=== PATIENT | female | born 1985 | race Caucasian/White ===

== ENCOUNTER 2018-01-07 04:16 | Emergency (ER) | payer OTHER ==
[~2018-01-07] VITALS: Ht 162.6 cm; Wt 43.2 kg
[~2018-01-07 04:16] MED LIST: IBUP-1050 PO
[2018-01-07 04:18] VITALS: TEMP 36.5; Ht 162.6 cm; Wt 43.2 kg
[2018-01-07] MEDS ORDERED: GI COCKTAIL PO STA (04:29)
[2018-01-07] MEDS ORDERED: ALUMINUM/MAGNESIUM SUSP 30 ML UDC ONE (04:37)
[2018-01-07] MEDS ORDERED: LIDOCAINE HCL 2% VISC SOLN 20 ML UDC ONE (04:37)
--- NOTE | 2018-01-07 04:38 | EMERGENCY ROOM VISIT NOTE ---
History Report prepared by Issa: Russ Hayward Under the Supervision of: Dr. Mati Posada M.D. First contact with patient: 04:22 Chief Complaint: CHEST PAIN Stated Complaint: CHEST PAIN,SHOOTING PAIN UP BACK,COLD SWEATS History of Present Illness The patient is a 32 year old female who presents to the Emergency Room with complaints of constant center chest pain beginning tonight. The patient states that she woke up tonight with bad chest pain that radiated through to her back and to her neck. She notes that her pain feels "tight" in her chest. She reports that she had her thyroid taken out 4 months ago. The patient states that her synthetic hormones have been increased within the last three weeks. She notes that she took ibuprofen today for a headache. She denies any urinary symptoms and diarrhea. She also denies any history of blood clots and heartburn as well as any recent travel. She reports that she has no family history of blood clots. She reports that she has a history of pancreas issues. She rates her pain as a 3/10, but states that her pain shoots through every now and then. Source of History: patient Onset: tonight Position: chest Symptom Intensity: 3/10 Quality: other ("tight") Timing: constant Associated Symptoms: + headache, + neck pain, + back pain, No diarrhea, No urinary symptoms Review of Systems See HPI for pertinent positives & negatives. A total of 10 systems reviewed and were otherwise negative. Past Medical & Surgical Medical Problems: (1) C. difficile colitis (2) Pancreatitis (3) Vascular malformation Surgical Problems: (1) H/O section (2) History of cholecystectomy (3) Previous section Family History Diabetes mellitus Hypertension Social History Smoking Status: Never Smoker Alcohol Use: none Drug Use: none Marital Status: Housing Status: lives with family Occupation Status: unemployed Current/Historical Medications Scheduled Duloxetine HCl (Cymbalta), 1 CAP PO DAILY Levothyroxine Sodium (Levothyroxine Sodium), 1 TAB PO DAILY Scheduled PRN Ibuprofen (Advil), 200-600 MG PO Q4H PRN for Pain Allergies Coded Allergies: Cat Dander (Verified Allergy, Unknown, ITCHY EYES RUNNY NOSE, 01/07/18) Molds & Smuts (Verified Allergy, Unknown, ITCHY EYES, RUNNY NOSE, 01/07/18) NO KNOWN DRUG ALLERGIES (Verified Allergy, Unknown, NONE, 01/07/18) Fentanyl (Unverified Adverse Reaction, Unknown, HIVES- CAN TAKE IF GIVEN WITH BENADRYL, 01/07/18) Morphine (Unverified Adverse Reaction, Unknown, HIVES- CAN TAKE IF GIVEN BENADRYL, 01/07/18) Physical Exam Vital Signs Date Time Temp Pulse Resp B/P (MAP) Pulse Ox O2 Delivery O2 Flow Rate FiO2 01/07/18 07:07 82 16 128/80 98 01/07/18 05:38 89 18 125/83 98 Room Air 01/07/18 04:42 88 01/07/18 04:42 Room Air 01/07/18 04:18 36.5 87 18 130/88 98 Room Air Physical Exam GENERAL: Patient is very anxious appearing and in mild distress., tearful. HEENT: No acute trauma, normocephalic atraumatic, mucous membranes moist, no nasal congestion, no scleral icterus. NECK: No stridor, no adenopathy, no meningismus, trachea is midline. LUNGS: No dyspnea. Clear to auscultation and equal bilaterally. No wheeze, no rhonchi. HEART: Regular rate and rhythm. No murmurs, rubs, gallops appreciated. ABDOMEN: Soft, nontender, bowel sounds positive, no masses appreciated, no peritonitis. BACK: No midline tenderness, no CVA tenderness EXTREMITIES: Normal motion all extremities, no cyanosis, no edema. NEUROLOGIC: Alert and oriented, no acute motor or sensory deficits, no focal weakness, cranial nerves grossly intact. SKIN: No rash, no jaundice, no diaphoresis. Medical Decision & Procedures ER Provider Diagnostic Interpretation: X ray results are stated below per my interpretation: Chest: 1 view: No infiltrate, no effusion, normal cardiac border. Laboratory Results 01/07/18 04:30 Red Blood Count 4.17, Mean Corpuscular Volume 86.1, Mean Corpuscular Hemoglobin 28.5, Mean Corpuscular Hemoglobin Concent 33.1, Mean Platelet Volume 9.0, Neutrophils (%) (Auto) 46.7, Lymphocytes (%) (Auto) 43.5, Monocytes (%) (Auto) 7.6, Eosinophils (%) (Auto) 1.3, Basophils (%) (Auto) 0.9, Neutrophils # (Auto) 2.57, Lymphocytes # (Auto) 2.39, Monocytes # (Auto) 0.42, Eosinophils # (Auto) 0.07, Basophils # (Auto) 0.05 01/07/18 04:30 Test 01/07/18 04:30 01/07/18 06:26 White Blood Count 5.50 K/uL (4.8-10.8) Red Blood Count 4.17 M/uL (4.2-5.4) Hemoglobin 11.9 g/dL (12.0-16.0) Hematocrit 35.9 % (37-47) Mean Corpuscular Volume 86.1 fL (80-100) Mean Corpuscular Hemoglobin 28.5 pg (25-34) Mean Corpuscular Hemoglobin Concent 33.1 g/dl (32-36) Platelet Count 371 K/uL (130-400) Mean Platelet Volume 9.0 fL (7.4-10.4) Neutrophils (%) (Auto) 46.7 % Lymphocytes (%) (Auto) 43.5 % Monocytes (%) (Auto) 7.6 % Eosinophils (%) (Auto) 1.3 % Basophils (%) (Auto) 0.9 % Neutrophils # (Auto) 2.57 K/uL (1.4-6.5) Lymphocytes # (Auto) 2.39 K/uL (1.2-3.4) Monocytes # (Auto) 0.42 K/uL (0.11-0.59) Eosinophils # (Auto) 0.07 K/uL (0-0.5) Basophils # (Auto) 0.05 K/uL (0-0.2) RDW Standard Deviation 46.1 fL (36.4-46.3) RDW Coefficient of Variation 14.8 % (11.5-14.5) Immature Granulocyte % (Auto) 0.0 % Immature Granulocyte # (Auto) 0.00 K/uL (0.00-0.02) D-Dimer 410 ug/L FEU (0-500) Anion Gap 6.0 mmol/L (3-11) Est Creatinine Clear Calc Drug Dose 67.0 ml/min Estimated GFR () 108.9 Estimated GFR (Non- 94.0 BUN/Creatinine Ratio 16.0 (10-20) Calcium Level 9.8 mg/dl (8.5-10.1) Total Bilirubin 0.4 mg/dl (0.2-1) Aspartate Amino Transf (AST/SGOT) 13 U/L (15-37) Alanine Aminotransferase (ALT/SGPT) 20 U/L (12-78) Alkaline Phosphatase 44 U/L (45-117) Troponin I < 0.015 ng/ml (0-0.045) Total Protein 8.1 gm/dl (6.4-8.2) Albumin 4.5 gm/dl (3.4-5.0) Globulin 3.6 gm/dl (2.5-4.0) Albumin/Globulin Ratio 1.3 (0.9-2) Lipase 161 U/L (73-393) Bedside Troponin I < 0.030 ng/ml (0-0.045) Laboratory results as reviewed by me. Medications Administered Medications (Trade) Dose Ordered Sig/Bart Route Start Time Stop Time Status Last Admin Dose Admin Al Hydroxide/Mg Hydroxide (Maalox Susp) 30 ml STK-MED ONCE .ROUTE 01/07/18 04:37 01/07/18 04:38 DC 01/07/18 04:45 30 ML Lidocaine HCl (Viscous Lidocaine 2% Soln) 20 ml STK-MED ONCE .ROUTE 01/07/18 04:37 01/07/18 04:38 DC 01/07/18 04:44 20 ML Diphenhydramine HCl (Benadryl Inj) 25 mg NOW STAT IV 01/07/18 05:30 01/07/18 05:31 DC 01/07/18 05:38 25 MG Hydromorphone HCl (Dilaudid Inj) 0.5 mg NOW STAT IV 01/07/18 05:30 01/07/18 05:31 DC 01/07/18 05:37 0.5 MG ECG Indication: chest pain Rate (beats per minute): 84 Rhythm: normal sinus Findings: no acute ischemic change, no ectopy, other (Nonspecific lateral ST depression) Comparison ECG Date: no prior available Change: EKG: Electrocardiogram per my interpretation. REPEAT EKG: Normal sinus at 85. No ectopy. No ischemia. Improved baseline from previous. ST abnormalities are no longer apparent. ED Course 0424: The patient was evaluated in room B4. A complete history and physical exam was performed. 0530: I reevaluated and updated the patient. She says that her pain has not gone away, and is now requesting Dilaudid. 0655: I rechecked the patient. She notes residual mile soreness. She is comfortable going home and will follow up with her PCP. She will return here in 12-24 hours if her symptoms do not improve. She will return back to the emergency department earlier if her symptoms worsen. 0700: Reevaluated the patient. Discussed results and discharge instructions. She verbalized understanding and agreement. The patient is ready for discharge. Medical Decision Differential: Gastritis/PUD, Pancreatitis, ACS, Aortic Pathology, Cholecystitis , Gallbladder disfunction, Hepatic Disfunction, PE, amongst other pathologies entertained. 32 yr old female with substernal chest pressure radiating to back and neck. Minimal improvement with GI cocktail thus some Dilaudid/Benadryl with improvement. EKG initially with questionable lateral STs though I suspect this is all poor baseline, especially given that repeat EKG was completely normal. Labs unremarkable. Dimer negative and without risk factors I do not feel this is PE. I have done 2 Trops which were both negative several hours apart. She has no evidence of ACS, Dissection, PE. Abdominal exam benign not consistent with GB issues and with normal LFTs/Lipase I do not feel that imaging abdomen required. Symptoms not consistent with Thyroid issues. HR normal throughout ED stay. Vitals looking better. Stable and non-toxic. Unclear exact cause though may all be MSK. Discussed monitoring at home and if worsening or no improvement RTED for further evaluation. Medication Reconcilliation Current Medication List: was personally reviewed by me Blood Pressure Screening Patient's blood pressure: Normal blood pressure Blood pressure disposition: Did not require urgent referral Impression Primary Impression: Substernal precordial chest pain Scribe Attestation The scribe's documentation has been prepared under my direction and personally reviewed by me in its entirety. I confirm that the note above accurately reflects all work, treatment, procedures, and medical decision making performed by me. Departure Information Dispostion Home / Self-Care Referrals Gaye Echevarria D.O. (PCP) Forms Call Back Authorization, HOME CARE DOCUMENTATION FORM, IMPORTANT VISIT INFORMATION Patient Instructions ED Chest Pain Atypical Unkn Cause, My [facility] Additional Instructions Please follow up with your primary care provider. Return in 12 -24 hours if no improvement or other concerns. Return immediately if significant worsening, passing out, difficulty breathing or other acute concerns.
[2018-01-07 04:45] LABS: BASO % 0.9 %; BASO ABS # 0.05 K/uL (0-0.2); EOS % 1.3 %; EOS ABS # 0.07 K/uL (0-0.5); HEMATOCRIT 35.9 % (37-47); HEMOGLOBIN 11.9 g/dL (12.0-16.0); LYMPH % 43.5 %; LYMPH ABS # 2.39 K/uL (1.2-3.4); MEAN CELL VOLUME 86.1 fL (80-100); MEAN CORPUSCULAR HEMOGLOBIN 28.5 pg (25-34); MEAN CORPUSCULAR HGB CONC 33.1 g/dl (32-36); MONO % 7.6 %; MONO ABS # 0.42 K/uL (0.11-0.59); NEUT % 46.7 %; NEUT ABS # 2.57 K/uL (1.4-6.5); PLATELET COUNT 371 K/uL (130-400); RED CELL DISTRIBUTION WIDTH CV 14.8 % (11.5-14.5); RED CELL DISTRIBUTION WIDTH SD 46.1 fL (36.4-46.3)
[2018-01-07 05:03] LABS: ALBUMIN 4.5 gm/dl (3.4-5.0); ALT/SGPT 20 U/L (12-78); AST/SGOT 13 U/L (15-37); BLOOD UREA NITROGEN 13 mg/dl (7-18); CALCIUM 9.8 mg/dl (8.5-10.1); CARBON DIOXIDE 28 mmol/L (21-32); CREATININE 0.83 mg/dl (0.60-1.20); GLUCOSE 94 mg/dl (70-99); LIPASE 161 U/L (73-393); POTASSIUM 3.7 mmol/L (3.5-5.1); SODIUM 140 mmol/L (136-145)
[2018-01-07 05:08] LABS: ALKALINE PHOSPHATASE 44 U/L (45-117); TOTAL PROTEIN 8.1 gm/dl (6.4-8.2)
[2018-01-07] MEDS ORDERED: CYM/30 PO (05:21)
[2018-01-07] MEDS ORDERED: LEVO100T7 PO (05:21)
[2018-01-07] MEDS ORDERED: DiphenhydrAMINE HCL 50 MG/ML VIAL IV STA (05:30)
[2018-01-07] MEDS ORDERED: HYDROmorphone INJ 0.5 MG/0.5 ML SYR IV STA (05:30)
--- NOTE | 2018-01-07 06:39 | DIAGNOSTIC IMAGING REPORT ---
CHEST ONE VIEW PORTABLE CLINICAL HISTORY: Chest pain. COMPARISON STUDY: Chest radiograph October 27, 2014. FINDINGS: Lung volumes are normal. No pneumothorax or pleural effusion is noted. Cardiac size is normal. Mediastinal contours are normal. There is no evidence for pulmonary edema. Lungs are clear. IMPRESSION: No acute cardiopulmonary findings. Electronically signed by: Aroldo Priest M.D. 01/07/2018 6:37 AM Dictated Date/Time: 01/07/2018 6:37 AM
[2018-01-07] MEDS ORDERED: OXYCODONE IR HOME PACK PO ONE (07:00)
[2018-01-07 07:07] VITALS: BP 128/80; PULSE 82; O2SAT 98
== END 2018-01-07 07:09 | disposition home or self-care (01) ==
LOC: C.EDB 04:17
DX: R07.2 Precordial pain (principal); R51 Headache; M54.2 Cervicalgia; Z79.899 Other long term (current) drug therapy

== ENCOUNTER 2024-09-14 10:35 | Observation (INO) ==
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
[2024-09-14 12:11] LABS: Basophils # (auto) 0.05 K/uL (0.00-0.20); Basophils % (auto) 0.7 %; Eosinophils # (auto) 0.04 K/uL (0.00-0.50); Eosinophils % (auto) 0.6 %; Hematocrit (blood only) 39.2 % (37.0-47.0); Hemoglobin 13.2 g/dl (12.0-16.0); Immature Granulocytes # (auto) 0.02 K/uL (0.01-0.20); Immature Granulocytes % (auto) 0.3 %; Lymphocytes # (auto) 2.01 K/uL (1.20-3.40); Lymphocytes % (auto) 28.1 %; Mean Corpuscular Hemoglobin 29.3 pg (25.0-34.0); Mean Corpuscular Hgb Conc 33.7 g/dL (32.0-36.0); Mean Corpuscular Volume 86.9 fL (80.0-100.0); Mean Platelet Volume 9.2 fL (9.4-12.4); Monocytes % (auto) 8.4 %; Neutrophils # (auto) 4.44 K/uL (1.40-6.50); Neutrophils % (auto) 61.9 %; Platelet Count 343 K/uL (130-400); RDW Coefficient of Variation 12.1 % (11.5-14.5); RDW Standard Deviation 38.8 fL (36.4-46.3); Red Blood Count 4.51 M/uL (4.20-5.40); White Blood Count 7.16 K/ul (4.8-10.8)
[2024-09-14 12:24] LABS: BUN Creatinine Ratio 9.1 (10-20); Calcium 9.7 mg/dl (8.6-10.3); Potassium 3.8 mmol/L (3.5-5.1)
[2024-09-14 12:28] LABS: Troponin I High Sensitivity 2.9 pg/ml (0-14)
[2024-09-14] MEDS: OPTIRAY 320 125ml IV ONE ×2 (12:40→16:15)
[2024-09-14 12:47] LABS: Appearance Urine Clear (Clear); Bilirubin Urine Negative (Negative); Blood Urine Negative (Negative); Color Urine Yellow; Glucose Urine UA Negative (Negative); Ketones Urine Trace (Negative); Leukocyte Esterase Urine Negative (Negative); Nitrite Urine Negative (Negative); Protein Urine Negative (Negative); Specific Gravity Urine 1.005 (1.000-1.030); Urobilinogen Urine Negative (Negative)
--- NOTE | 2024-09-14 13:09 | CT Scan Report ---
CT head venogram w con HISTORY: 38 years-old Female Positional headache, thrombosis acute headache COMPARISON: None TECHNIQUE: CT venogram was obtained with IV contrast. A dose lowering technique was used consistent w ith the principals bobo UP. FINDINGS: Normal cerebral venous sinuses without evidence of thrombus. No abnormal enhancement. IMPRESSION: Normal exam ACT 112: Negative or not required by law. The above report was generated using voice recognition software. It may contain grammatical, syntax o r spelling errors. Electronically signed by: Des Gibbons M.D. 09/14/2024 1:07 PM
[2024-09-14] MEDS: PROCHLORPERAZINE 5 MG/ML 2 ML VIAL IV STA (13:22)
[2024-09-14] MEDS: diphenhydrAMINE 50 MG/ML VIAL IV STA ×2 (13:22→14:51)
[2024-09-14] MEDS: KETOROLAC TROMETHAMINE 15 MG/ML VIAL IV ONE (13:22)
[2024-09-14] MEDS: MAGNESIUM SULFATE / D5W 1 GM/100 ML BAG IV ONE (13:23)
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
[2024-09-14 16:33] LABS: Thyroid Stimulating Hormone 0.239 uIu/ml (0.300-4.500)
--- NOTE | 2024-09-14 16:43 | CT Scan Report ---
CT angio head wo/w CLINICAL HISTORY: Intractable headache. COMPARISON STUDY: CT venogram performed earlier today. TECHNIQUE: Unenhanced and arterial phase imaging of the head was performed. Intravenous injection 119 cc of Optiray 320 IV was uneventful. Sagittal and coronal reconstructions were viewed as well as max imal intensity projections on an independent workstation. Automated exposure control was utilized for the study. A dose lowering technique was utilized adhering to the principles of ALARA. FINDINGS: No acute intracranial hemorrhage, midline shift or mass effect is present. Residual intrava scular contrast from recent contrast-enhanced CT is noted. The ventricular system is normal. The basa l cisterns are patent. There are no extra-axial collections. [place]-white differentiation is maintained . There are no findings to suggest acute dural sinus thrombosis or acute territorial infarct. The yaritza ateral M1, M2, A1 and A2 segments are patent. There is no intracranial aneurysm. The posterior circul ation is intact. Major dural sinuses are patent. IMPRESSION: 1. No acute intracranial findings. 2. Unremarkable CTA of the head. ACT 112: Negative or not required by law. Electronically signed by: Aroldo Priest M.D. 09/14/2024 4:41 PM
[2024-09-14] MEDS: LORazepam 0.5 MG TAB PO ONE (16:55)
[2024-09-14 17:08] LABS: T4 Free Thyroxine 1.42 ng/dl (0.61-1.60)
--- NOTE | 2024-09-14 17:08 | CT Scan Report ---
CT ANGIOGRAM OF THE NECK COMBO CLINICAL HISTORY: Headache. COMPARISON STUDY: No priors. TECHNIQUE: Before and following the IV administration of 119 of Optiray 320, CT angiogram of the neck was performed from the aortic arch to the skull base. Images are reviewed in the axial, sagittal, an d coronal planes. 3-D MIPS images are created and assessed. IV contrast was administered without comp lication. All measurements were calculated based on NASCET criteria. A dose lowering technique was u tilized adhering to the principles of ALARA. FINDINGS: Thoracic aorta: Visualized portions of the thoracic aorta are normal in caliber. The aortic arch demo nstrates standard 3-vessel anatomy. Right carotid arterial system: The right common carotid artery is widely patent, as are the right int ernal and external carotid arteries. Left carotid arterial system: The left common carotid artery is widely patent, as are the left development intern al and external carotid arteries. Vertebral arteries: Widely patent bilaterally and codominant. Subclavian arteries: Widely patent bilaterally. Intracranial vasculature: The visualized intracranial vessels at the skull base are patent. Jugular veins: Patent bilaterally. Brain parenchyma: The visualized brain parenchyma the skull base is within normal limits. Lung apices: Partially visualized upper lobe lung parenchyma appears clear. Soft tissues: The visualized pharyngeal soft tissues are normal in appearance noting angiographic pha se technique. The oropharyngeal airway appears widely patent. The thyroid gland is surgically absent. The salivary glands are normal in appearance. There is a 0.8 x 0.7 cm left cervical chain node on un enhanced image #169 which contains a coarse calcification. No additional calcification containing cer vical nodes are identified. Skeletal structures: The visualized calvarium at the skull base appears intact. The imaged cervical s pine is within normal limits. Sinuses and mastoids: The paranasal sinuses are clear. The mastoid air cells are well pneumatized. IMPRESSION: 1. Unremarkable CT angiogram of the neck. 2. There is an 8 mm left cervical chain node which contains a calcification. This is not highly suspi cious, but given the history of thyroidectomy a targeted ultrasound of this lymph node is recommended . ACT 112: Positive. There are findings on this exam that require communication between the performing entity and the patient following Patient Test Result Information Act ([place] Act 112) guidelines. Electronically signed by: Nic Lr M.D. 09/14/2024 5:07 PM
[2024-09-14] MEDS: GADOBUTROL 65ML VIAL IV ONE (17:39)
[2024-09-14] MEDS ORDERED: ALUMINUM/MAGNESIUM SUSP 30 ML UDC PO PRN (18:30)
[2024-09-14] MEDS ORDERED: POLYETHYLENE (MIRALAX) 17 GM PACK PO PRN (18:30)
[2024-09-14] MEDS ORDERED: ACETAMINOPHEN 325 MG TAB PO PRN (18:30)
[2024-09-14] MEDS ORDERED: ONDANSETRON INJ 2 MG/ML 2 ML VIAL IV PRN (18:30)
[2024-09-14] MEDS ORDERED: MAGNESIUM HYDROXIDE SUSP 30 ML UDC PO PRN (18:30)
--- NOTE | 2024-09-14 19:16 | Magnetic Resonance Report ---
MRI OF THE BRAIN COMBO CLINICAL HISTORY: Migraine headache. COMPARISON STUDY: CT of the brain performed the same date 08/25/2024. TECHNIQUE: MRI of the brain was performed utilizing various T1 and T2-weighted sequences in the axial , sagittal, and coronal planes. Contrast-enhanced sequences were acquired following the administratio n of 5 cc of Gadavist. FINDINGS: Brain parenchyma: The brain parenchyma is normal in appearance. There is no hemorrhage or mass effect . There is no restricted diffusion to suggest acute ischemia. No enhancing mass lesion is identified on the postcontrast images. [place]-white matter differentiation is preserved. No extra-axial fluid raghavendra ection is seen. The cerebellar tonsils are normal in configuration. Ventricles, sulci, and cisterns: Normal in configuration. Pituitary and sella: Unremarkable. Intracranial vasculature: Normal flow voids are maintained at the skull base. Orbits: The bony orbits are grossly intact. Orbital contents are normal in appearance. Sinuses and mastoids: Clear. Calvarium: Unremarkable. Cervical cord: Partially visualized cervical spinal cord is normal in morphology and signal intensity . IMPRESSION: No acute intracranial abnormality. ACT 112: Negative or not required by law. Electronically signed by: Nic Lr M.D. 09/14/2024 7:14 PM
[2024-09-15] MEDS: LEVOTHYROXINE SODIUM 112 MCG TABLET PO SCH (06:37)
[2024-09-15 07:09] LABS: Hematocrit (blood only) 36.7 % (37.0-47.0); Hemoglobin 12.6 g/dl (12.0-16.0); Mean Corpuscular Hemoglobin 29.6 pg (25.0-34.0); Mean Corpuscular Hgb Conc 34.3 g/dL (32.0-36.0); Mean Corpuscular Volume 86.4 fL (80.0-100.0); Mean Platelet Volume 9.1 fL (9.4-12.4); Platelet Count 337 K/uL (130-400); RDW Standard Deviation 38.2 fL (36.4-46.3); Red Blood Count 4.25 M/uL (4.20-5.40); White Blood Count 6.82 K/ul (4.8-10.8)
[2024-09-15 07:21] LABS: BUN Creatinine Ratio 9.3 (10-20); Creatinine Clr Calc Pharmacy 84.5 ml/min; Magnesium 2.3 mg/dl (1.7-2.4); Potassium 3.6 mmol/L (3.5-5.1)
[2024-09-15 07:48] VITALS: RESP 18
--- NOTE | 2024-09-15 10:01 | Ultrasound Report ---
US soft tissue head and neck CLINICAL HISTORY: f/u ultrasound, calcified lymph node COMPARISON STUDY: CTA of the neck September 14, 2024. TECHNIQUE: Sonography of the left neck was performed. FINDINGS: Multiple benign-appearing left cervical lymph nodes were noted. Index node measures 0.9 x 0 .6 x 0.3 cm. One-to-one correlation with the neck CT of September 14, 2024 is difficult however the lym ph node on CT is likely benign. No enlarged left cervical lymph nodes were identified. IMPRESSION: 1. No enlarged left-sided cervical lymph nodes. 2. The left level [address] of September 14, 2024 is likely benign. This could be assessed wit h a follow-up neck CT in 6 months to ensure stability. ACT 112: Negative or not required by law. Electronically signed by: Aroldo Priest M.D. 09/15/2024 9:59 AM
[2024-09-15] MEDS: BUTALBITAL/ACETAMIN/CAFFEINE TAB PO PRN (10:05)
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
[2024-09-15] MEDS: SODIUM CHLORIDE 0.9% 1,000 ML IV SCH (12:10)
[2024-09-15 15:55] VITALS: PULSE 98; TEMP 98.4; O2SAT 97
--- NOTE | 2024-09-15 15:59 | Discharge Summary ---
Discharge Summary Date of Service September 15, 2024 Principal Dx & Hospital Course #1 = Principal Diagnosis (1) Intractable headache: (2) History of thyroid cancer: (3) Anxiety: Plan Ms. Neff is a 38 year old female that presents to the ED today with an intractable headache that has been progressively worsening over the past 3-4 days. She recently had been experiencing N/V/D that has been occurring since . No other sick contacts in the house and no recent travel. She describes the headache as positional and becomes worse with sitting and standing. She denies visual or auditory changes, including blurry or double v ision, AMS, chest pain, SOB, palpitations, N/V/D, recent falls or trauma. Nazanin has a PMH that includes thyroid cancer s/p thyroidectomy in 2017, and anxiety/depression. A migraine cocktail was administered in the ED. ED discussed with systems integration advisor Neuro who recommended a brain MRI, head/neck CTA and neurology consultation. Intractable CHAMPION: intractable frontal and occipital headache without aura that has been progressively worsening over the past 3-4 days No leukocytosis Venogram CT negative Head CTA unremarkable Neck CTA with noted 8mm L Cervical chain node with calcification. A targeted ultrasound of the lymph node was further recommended Brain MRI was unremarkable Head and neck ultrasound noting a benign lymph node. Repeat neck CT imaging in 6 months was recommended to ensure stability. Migraine cocktail given in ED, 1G Mg+ given in ED: trend in AM Patient was started on Fioricet by admitting team. She stated that she did find some relief with that. Orthostatic vitals were obtained, and pt received IV Fluids with noted improvement Discharged with a few more pills of Fioricet with close PCP follow-up Neurology consulted, recommended/stated the following: -Recommend continued headache treatment -Continue IVF if tolerated Patient was advised to continue to push oral fluids after discharge and keep close neurology follow-up as well Patient was discharged in stable condition History of thyroid cancer: s/p thyroidectomy 2017 TSH elevated and reflex T4 normal Takes Synthroid; continue PCP followup H/O AVM: Chronic Diagnosed in 2016 Notes For Next Care Provider please ensure resolution of headache Please ensure close neurology follow-up Medication Changes From Visit Fioricet, 10 pills Admission HPI Per Admitting Provider Ms. Neff is a 38 year old female that presents to the ED today with an intractable headache that has been progressively worsening over the past 3-4 days. She recently had been experiencing N/V/D that has been occuring since . No other sick contacts in the house and no recent travel. She describes the headache as positional and becomes worse with sitting and standing. She denies visual or auditory changes, including blurry or double vision, AMS, chest pain, SOB, palpitations, N/V/D, recent falls or trauma. Nazanin has a PMH that includes thyroid cancer s/p thyroidectomy in 2017, and anxiety/depression. Pt denies tobacco use, alcohol use or recreational drug use including medical marijuana. She said that her LMP was on 09/03 and more heavy than usual. She has had about 8# weight gain unintentionally over the past few months. She eats a normal diet with avoiding fast food usually. No unusual stressor outside of being a parent to four kids ranging 5-11 years old. In the ED, no leukocytosis, normotensive and otherwise labs unremarkable. 1G Mg+ IV was administered and a head CT venogram was performed without contrast without abnormalities. A migrane cocktail was administered. ED discussed with systems integration advisor Neuro who recommended a brain MRI, head/neck CTA and neurology consultation. Will continue IV Ketorolac and Patient will be admitted for further evaluation and management. Please see A/P for further details. Admission Exam Per Admitting Provider Neuro: AAOx4, PERRLA, no aphagia, memory changes, CNII-XII grossly intact. HEENT: head normocephalic, moist mucus membranes CV: S1/S2, (-) M/G/R, (-) edema, cap refill < 3 seconds Resp: Lungs CTA in all egan. On RA GI: Abdomen S/NT/ND, Ax4 bowel sounds, (-) CVA tenderness Musculoskeletal: 5/5 B/L UE strength, 5/5 B/L LE strength. No gait disturbance Skin: (-) rashes , (-) erythema. Psych: euthymic mood Discharge Exam General: Alert, oriented. No acute distress Skin: No noted rashes or bruises Psych: Appropriate mood and affect Neuro: No gross deficits HEENT: NC/AT Chest: Nontender to palpation. CV: RRR Resp: Breath sounds clear bilaterally, no increased effort of breathing. Abdomen:Soft, nontender Extremities: No edema in lower extremities bilaterally. Updated Medication List Medication Instructions Recorded Confirmed Type levothyroxine 112 mcg tablet 112 mcg PO DAILYBB 10/21/24 10/21/24 History qkktfukikr-ofelvbqxwtnaw-mkaqrxvr 1 tab PO Q4H PRN headache #10 tabs 09/15/24 Rx 50 mg-325 mg-40 mg tablet Hospital Stay Data Consultations 09/14/24 14:44 ED Decision to Admit Stat 09/14/24 18:30 Consult Neurology Routine Diagnostic Imagining Performed 09/14/24 11:51 CT head venogram w con Stat 09/14/24 14:44 MRI Brain [MR brain wo/w con] Stat 09/14/24 15:34 CTA neck wo/w con [CT angio neck wo/w con] Routine 09/14/24 15:35 CTA head wo/w [CT angio head wo/w] Routine 09/15/24 08:04 US Head and Neck [US soft tissue head and neck] Routine Venogram CT 09/14/24 11:51 CT head venogram w con HISTORY: 38 years-old Female Positional headache, thrombosis acute headache COMPARISON: None TECHNIQUE: CT venogram was obtained with IV contrast. A dose lowering technique was used consistent with the principals of ANNEL. FINDINGS: Normal cerebral venous sinuses without evidence of thrombus. No abnormal enhancement. IMPRESSION: Normal exam ACT 112: Negative or not required by law. The above report was generated using voice recognition software. It may contain grammatical, syntax or spelling errors. Electronically signed by: Des Gibbons M.D. 09/14/2024 1:07 PM Brain MRI 09/14/24 14:44 MRI OF THE BRAIN COMBO CLINICAL HISTORY: Migraine headache. COMPARISON STUDY: CT of the brain performed the same date 08/25/2024. TECHNIQUE: MRI of the brain was performed utilizing various T1 and T2-weighted sequences in the axial, sagittal, and coronal planes. Contrast-enhanced sequences were acquired following the administration of 5 cc of Gadavist. FINDINGS: Brain parenchyma: The brain parenchyma is normal in appearance. There is no hemorrhage or mass effect. There is no restricted diffusion to suggest acute ischemia. No enhancing mass lesion is identified on the postcontrast images. [place]-white matter differentiation is preserved. No extra-axial fluid collection is seen. The cerebellar tonsils are normal in configuration. Ventricles, sulci, and cisterns: Normal in configuration. Pituitary and sella: Unremarkable. Intracranial vasculature: Normal flow voids are maintained at the skull base. Orbits: The bony orbits are grossly intact. Orbital contents are normal in appearance. Sinuses and mastoids: Clear. Calvarium: Unremarkable. Cervical cord: Partially visualized cervical spinal cord is normal in morphology and signal intensity. IMPRESSION: No acute intracranial abnormality. ACT 112: Negative or not required by law. Electronically signed by: Nic Lr M.D. 09/14/2024 7:14 PM Neck CTA 09/14/24 15:34 CT ANGIOGRAM OF THE NECK COMBO CLINICAL HISTORY: Headache. COMPARISON STUDY: No priors. TECHNIQUE: Before and following the IV administration of 119 of Optiray 320, CT angiogram of the neck was performed from the aortic arch to the skull base. Images are reviewed in the axial, sagittal, and coronal planes. 3-D MIPS images are created and assessed. IV contrast was administered without complication. All measurements were calculated based on NASCET criteria. A dose lowering technique was utilized adhering to the principles of ALARA. FINDINGS: Thoracic aorta: Visualized portions of the thoracic aorta are normal in caliber. The aortic arch demonstrates standard 3-vessel anatomy. Right carotid arterial system: The right common carotid artery is widely patent, as are the right internal and external carotid arteries. Left carotid arterial system: The left common carotid artery is widely patent, as are the left internal and external carotid arteries. Vertebral arteries: Widely patent bilaterally and codominant. Subclavian arteries: Widely patent bilaterally. Intracranial vasculature: The visualized intracranial vessels at the skull base are patent. Jugular veins: Patent bilaterally. Brain parenchyma: The visualized brain parenchyma the skull base is within normal limits. Lung apices: Partially visualized upper lobe lung parenchyma appears clear. Soft tissues: The visualized pharyngeal soft tissues are normal in appearance noting angiographic phase technique. The oropharyngeal airway appears widely patent. The thyroid gland is surgically absent. The salivary glands are normal in appearance. There is a 0.8 x 0.7 cm left cervical chain node on unenhanced image #169 which contains a coarse calcification. No additional calcification containing cervical nodes are identified. Skeletal structures: The visualized calvarium at the skull base appears intact. The imaged cervical spine is within normal limits. Sinuses and mastoids: The paranasal sinuses are clear. The mastoid air cells are well pneumatized. IMPRESSION: 1. Unremarkable CT angiogram of the neck. 2. There is an 8 mm left cervical chain node which contains a calcification. This is not highly suspicious, but given the history of thyroidectomy a targeted ultrasound of this lymph node is recommended. ACT 112: Positive. There are findings on this exam that require communication between the performing entity and the patient following Patient Test Result Information Act ([place] Act 112) guidelines. Electronically signed by: Nic Lr M.D. 09/14/2024 5:07 PM Head CTA 09/14/24 15:35 CT angio head wo/w CLINICAL HISTORY: Intractable headache. COMPARISON STUDY: CT venogram performed earlier today. TECHNIQUE: Unenhanced and arterial phase imaging of the head was performed. Intravenous injection 119 cc of Optiray 320 IV was uneventful. Sagittal and coronal reconstructions were viewed as well as maximal intensity projections on an independent workstation. Automated exposure control was utilized for the study. A dose lowering technique was utilized adhering to the principles of ALARA. FINDINGS: No acute intracranial hemorrhage, midline shift or mass effect is present. Residual intravascular contrast from recent contrast-enhanced CT is noted. The ventricular system is normal. The basal cisterns are patent. There are no extra-axial collections. [place]-white differentiation is maintained. There are no findings to suggest acute dural sinus thrombosis or acute territorial infarct. The bilateral M1, M2, A1 and A2 segments are patent. There is no intracranial aneurysm. The posterior circulation is intact. Major dural sinuses are patent. IMPRESSION: 1. No acute intracranial findings. 2. Unremarkable CTA of the head. ACT 112: Negative or not required by law. Electronically signed by: Aroldo Priest M.D. 09/14/2024 4:41 PM Head/Neck Ultrasound 09/15/24 08:04 US soft tissue head and neck CLINICAL HISTORY: f/u ultrasound, calcified lymph node COMPARISON STUDY: CTA of the neck September 14, 2024. TECHNIQUE: Sonography of the left neck was performed. FINDINGS: Multiple benign-appearing left cervical lymph nodes were noted. Index node measures 0.9 x 0.6 x 0.3 cm. One-to-one correlation with the neck CT of September 14, 2024 is difficult however the lymph node on CT is likely benign. No enlarged left cervical lymph nodes were identified. IMPRESSION: 1. No enlarged left-sided cervical lymph nodes. 2. The left level [address] of September 14, 2024 is likely benign. This could be assessed with a follow-up neck CT in 6 months to ensure stability. ACT 112: Negative or not required by law. Electronically signed by: Aroldo Priest M.D. 09/15/2024 9:59 AM Pending Results Patient Have Any Pending Studies at Discharge: No Discharge Instructions Given to Patient (Per Discharging Provider) Wilmer Back were admitted and treated for a persistent headache. You were seen by the neurologist. They recommend continued treatment of your headache. You seemed to get some relief from the Fioricet you were started on on admission. Please keep close follow-up with neurology and your primary care provider after discharge. We also gave you IV fluids. Continue to maintain your hydration status with oral liquids is much as you can at home. Please keep close follow-up with your primary care provider for the needed repeat imaging of your cervical lymph node in 6 months. Please keep close follow up with your primary care provider after discharge. Please do not hesitate to come back to the emergency room if your symptoms worsen or return. It was a pleasure taking care of you while you were here. Total Time Total Time Spent Total Time Spent (In Minutes): 65
[2024-09-15 16:06] VITALS: BP 103/67
== END 2024-09-15 16:50 | disposition home or self-care (01) | DRG 103 ==
LOC: ED 10:35 → SUATTDRO 15:27 → INTOOBSV 15:27 → 2N 15:27